=== PATIENT | male | born 1970 | race African-American/Black ===

== ENCOUNTER 2018-01-20 07:47 | Emergency (ER) | payer MEDICAID ==
[2018-01-20 08:05] LABS: ADD MAN DIFF? NO
[2018-01-20 08:06] LABS: WHITE BLOOD COUNT 11.8 10^3/ul (4.8-10.8)
[2018-01-20 08:06] LABS: BASOPHILS % 0.3 % (0.0-2.0); HEMATOCRIT 43.9 % (42.0-52.0); HEMOGLOBIN 14.4 g/dl (14.0-18.0); LYMPHOCYTES # 0.8 10^3/ul (0.8-2.9); LYMPHOCYTES % 6.4 % (15.0-51.0); MEAN CORPUSCULAR HEMOGLOBIN 29.8 pg (29.0-33.0); MEAN CORPUSCULAR HGB CONC 32.8 g/dl (32.0-37.0); MEAN CORPUSCULAR VOLUME 90.7 fl (82.0-101.0); MEAN PLATELET VOLUME 9.3 fl (7.4-10.4); MONOCYTE # 0.5 10^3/ul (0.3-0.9); MONOCYTES % 4.3 % (0.0-11.0); NEUTROPHIL # 10.5 10^3/ul (1.6-7.5); NEUTROPHILS % 88.6 % (39.0-77.0); PLATELET COUNT 282 10^3/UL (140-415); RED BLOOD COUNT 4.84 10^6/ul (4.70-6.10); RED CELL DISTRIBUTION WIDTH 13.8 % (11.5-14.5)
[2018-01-20] MEDS: morphine 4 MG/ML VIAL IV (08:24)
[2018-01-20] MEDS: SOD CHLORIDE 0.9% 1,000 ML IV (08:24)
[2018-01-20] MEDS: ONDANSETRON 4 MG INJ IV ×2 (08:25→09:19)
[2018-01-20 08:26] LABS: ALANINE AMINOTRANSFERASE 57 IU/L (13-69); ALBUMIN 4.2 g/dl (3.3-4.9); ALBUMIN/GLOBULIN RATIO 1.13; ALKALINE PHOSPHATASE 43 IU/L (42-121); AMYLASE 122 U/L (11-123); ANION GAP 18 (8-16); ASPARTATE AMINO TRANSFERASE 77 IU/L (15-46); BLOOD UREA NITROGEN 18 mg/dl (7-20); CALCIUM 9.7 mg/dl (8.4-10.2); CARBON DIOXIDE 19 mmol/L (21-31); CHLORIDE 106 mmol/L (97-110); CREATININE 1.38 mg/dl (0.61-1.24); GLUCOSE 121 mg/dl (70-220); LIPASE 86 U/L (23-300); POTASSIUM 4.2 mmol/L (3.5-5.1); SODIUM 139 mmol/L (135-144); TOTAL PROTEIN 7.9 g/dl (6.1-8.1)
[2018-01-20 08:28] LABS: INR 0.93; PROTIME 12.5 Sec (11.9-14.9)
[2018-01-20 08:29] LABS: PARTIAL THROMBOPLASTIN TIME 22.2 Sec (23.0-35.0)
[2018-01-20 08:37] LABS: TROPONIN-I < 0.012 ng/ml (0.000-0.120)
[2018-01-20] MEDS: HYDROmorphONE 2 MG/ML SYG IV (09:19)
[2018-01-20] MEDS: CEFAZOLIN 1 GM/50 ML (PMX) 50 ML IVPB (09:19)
[2018-01-20] MEDS: PROPOFOL 200 MG INJ IV ×2 (09:47→10:10)
[2018-01-20] MEDS: DIPHTH/TET/ACEL PERTUSS (ADULT) 0.5 ML VIAL IM* (10:00)
== END 2018-01-20 11:40 | disposition home or self-care (01) ==
LOC: E/R 07:47
DX: S43.015A Anterior dislocation of left humerus, initial encounter (principal); S05.8X2A Other injuries of left eye and orbit, initial encounter; S09.8XXA Other specified injuries of head, initial encounter; S02.2XXA Fracture of nasal bones, initial encounter for closed fracture; R10.9 Unspecified abdominal pain; Y04.2XXA Assault by strike against or bumped into by another person, initial encounter
CPT/HCPCS: 23650; 36415; 70450; 70486; 71045; 73030; 80053; 82150; 83690; 84484; 85025; 85610; 85730; 90471; 90715; 93005; 96374; 96375; 96376; 99285-25